=== PATIENT | male | born 1960 | race Caucasian/White ===

== ENCOUNTER 2018-03-29 20:14 | Inpatient (IN) | payer BC ==
[~2018-03-29] VITALS: Ht 182.9 cm; Wt 85.7 kg
--- NOTE | ~2018-03-29 | PROC ---
[address] [address] PROCEDURE REPORT Name: ABDOULAYE ALCANTARA Room: [facility]- ADM IN M.R.#: [id number] Admission: 03/29/18 Attend Phys: Chris Coppola Discharge: Date of : 64 Report #: [id number] THIS REPORT FOR: //name// For GI report, please see the Provation report in Perceptive 7 content. By: [id number] Records Staff KELI /JEREMIAH
[~2018-03-29 20:14] MED LIST: ACETAMINOPHEN-1 EAC1 PO; LISINOPRIL10 MG PO; PREDNISONE 20 M20 MG PO; PROAIR HFA8.5 GM INH; PROMETHAZINE D PO; PROMETHAZINE D480 ML PO; SINGULAIR 10 MG10 M1 PO; SYNTHROID150 MCG PO; TESSALON PERLE100 MG PO; ZANTAC 150MG T150 MG PO; ZPAK PO
[2018-03-29 20:15] VITALS: BP 161/96
[2018-03-29] MEDS ORDERED: OMEPRAZOLE 20 M20 M1 PO (20:20)
[2018-03-29] MEDS ORDERED: NEXIUM40 MG PO (20:23)
[2018-03-29 20:35] LABS: HEMATOCRIT 43.7 % (42.0-52.0); MCH 29.7 pg (26.0-34.0); MCHC 34.4 g/dL (28.0-37.0); MCV 86.4 fL (80.0-100.0); MPV 9.1 fl. (7.2-11.1); NUCLEATED RBCS 0 /100WBC; PLATELET COUNT* 285 thou/uL (150-400); RBC 5.05 mil/uL (4.50-6.00); RDW-CV 14.1 % (10.5-14.5); WBC 11.8 thou/uL (4.0-11.0)
[2018-03-29 20:55] LABS: ALBUMIN 4.1 g/dL (3.4-5.0); ALKALINE PHOSPHATASE 79 U/L (46-116); ANION GAP 12 mmol/L (7-16); BUN 26 mg/dL (7-18); CALCIUM 9.1 mg/dL (8.5-10.1); CHLORIDE 104 mmol/L (98-107); CO2 27 mmol/L (21-32); CREATININE 1.2 mg/dL (0.6-1.3); GLUCOSE 106 mg/dL (70-99); LIPASE 1692 U/L (73-393); POTASSIUM 3.1 mmol/L (3.5-5.1); SGOT 83 U/L (15-37); SGPT 70 U/L (30-65); SODIUM 143 mmol/L (136-145); TOTAL BILIRUBIN 0.8 mg/dL (<0.1-1.0); TOTAL PROTEIN 7.3 g/dL (6.4-8.2); TROPONIN-I LEVEL <0.06 ng/mL (<0.06)
[2018-03-29 20:57] LABS: URINE BILIRUBIN NEGATIVE (Negative); URINE BLOOD TRACE (Negative); URINE GLUCOSE-RANDOM NEGATIVE (Negative); URINE LEUKOCYTES-REFLEX NEGATIVE (Negative); URINE NITRITE-REFLEX NEGATIVE (Negative); URINE PROTEIN NEGATIVE (Negative); URINE SPECIFIC GRAVITY 1.025 (1.005-1.030); URINE UROBILINOGEN 0.2 E.U./dl (0.2-1.0)
[2018-03-29 21:10] LABS: URINE CLARITY SL HAZY; URINE COLOR YELLOW
[2018-03-29 21:17] LABS: URINE KETONES 3+ (Negative); URINE REDUCING SUBSTANCE NEGATIVE (Negative)
[2018-03-29 22:03] LABS: ABSOLUTE BASOPHILS 0.1 thou/uL (0.0-0.2); ABSOLUTE EOSINOPHILS 3.7 thou/uL (0.0-0.7); ABSOLUTE LYMPHOCYTES 3.2 thou/uL (0.8-5.3); ABSOLUTE MONOCYTES 0.5 thou/uL (0.0-1.2); ABSOLUTE NEUTROPHILS 4.4 thou/uL (1.6-8.1); PLATELET ESTIMATE ADEQUATE
[2018-03-29 22:55] VITALS: BP 140/91
[2018-03-29 23:10] VITALS: BP 154/95
[2018-03-29] MEDS ORDERED: VITAMIN D2000 UNIT PO (23:43)
--- NOTE | 2018-03-30 04:36 | NUR ---
PT ARRIVED ON UNIT FROM ER AT 2300 ASSISTED TO ROOM ORIENTED TO SURROUNDINGS VS AND ASSESSMENT STABLE. PT DENIED ANY COMPLAINTS AND SLEPT THROUGH THE NIGHT. WILL CONTINUE PLAN OF CARE.
[2018-03-30 08:00] VITALS: BP 119/85
--- NOTE | 2018-03-30 09:11 | NUR ---
ASSUMED CARE OF PT THIS AM. REFER TO ASSESSMENT. PT HAS NO C/O PAIN OR N/V THIS AM. POTASSIUM REPLACED ON PREVIOUS SHIFT. NO CONCERNS VOICED. CLWR. WCTM.
--- NOTE | 2018-03-30 09:15 | EKG ---
[place] [address] ELECTROCARDIOGRAM REPORT Name: ABDOULAYE ALCANTARA Room: [address] IN [facility].#: [id number] Admission: 03/29/18 Attend Phys: Chris Coppola Discharge: Date of : 64 Report #: [id number] THIS REPORT FOR: //name// [facility] ED Test Date: 2018-03-29 Test Time: 20:33:10 Pat Name: ABDOULAYE ALCANTARA Department: Room: Gender: Services Account Manager: [place] : 1960 Requested By: Gloria Montesinos Order Number: [id number] MD: Tony Martin Measurements Intervals [place] Rate: 62 P: 45 [place]: 182 QRS: -10 QRSD: 96 T: 22 QT: 443 QTc: 450 Interpretive Statements Sinus rhythm Borderline low voltage, extremity leads Compared to ECG 07/29/2017 11:09:46 No significant changes Electronically Signed On 03-30-2018 9:15:31 CDT by Tony Martin [email or web address] <ELECTRONICALLY SIGNED> By: Tony Martin MD, [facility] [id number] Tony Martin MD, [facility] /EPI
[2018-03-30 09:51] LABS: CALCIUM 8.7 mg/dL (8.5-10.1)
[2018-03-30 09:52] LABS: POTASSIUM 4.4 mmol/L (3.5-5.1)
[2018-03-30 11:05] LABS: CHOLESTEROL 168 mg/dL (<200); HDL CHOLESTEROL 38 mg/dL (>40); LDL CHOLESTEROL 117 mg/dL (<100); TC:HDL 4.4 Ratio (Not establshd); TRIGLYCERIDE 65 mg/dL (<150); VLDL 13 mg/dL (<40)
[2018-03-30 11:06] LABS: SERUM ASSESSMENT Clear
[2018-03-30 11:48] VITALS: BP 119/85
--- NOTE | 2018-03-30 12:18 | NUR ---
PT HEADING TO OR AT THIS TIME FOR EGD.
[2018-03-30 12:48] VITALS: BP 131/87
--- NOTE | 2018-03-30 15:44 | NUR ---
PT RETURNED FROM OR AROUND 1530. VSS. PT HAS NO C/O. WCTM.
[2018-03-30 16:10] VITALS: BP 131/85
--- NOTE | 2018-03-30 17:16 | NUR ---
PT PROGRESSING TOWARDS GOALS THIS SHIFT. EGD AND ABDOMINAL US COMPLETED. PT HAS NOT HAD ANY COMPLAINTS OF N/V. ADVANCED TO FULL LIQUID DIET AND TOLERATING AT THIS TIME. NO OTHER CONCERNS AT THIS TIME. CLWR. WCTM.
[2018-03-30 19:45] VITALS: BP 141/86
--- NOTE | 2018-03-31 05:17 | NUR ---
PATIENT ALERT AND ORIENTED. VITALS STABLE. RA. FLUIDS INFUSING PER ORDER. UP INDEPENDENTLY. DENIES NEED FOR PAIN AND NAUSEA MEDICATION. TOLERATING FULL LIQUID DIET. HOURLY ROUNDS. NURSING WILL CONTINUE TO MONITOR.
[2018-03-31 08:03] VITALS: BP 151/82
--- NOTE | 2018-03-31 10:33 | NUR ---
ASSUMED CARE OF PT THIS AM AROUND 07- UPON ASSESSMENT PT NOTED TO BE RESTING IN BED SIDE CHAIR- PT A&O X4- CONTINENT OF BOWEL AND BLADDER- UP AD-SILVIA WITH STEADY GAIT NOTED- LCTA, RESP EVEN AND UN-LABORED- VSS, O2 SAT 95% ON RA- ABDOMEN SOFT/ROUND/NON-TENDER, BS X4 QUADS- LAST BM REPORTED 03/30/18- IV NOTED TO LEFT AC INTACT, IVF INFUSING PRESCIBED- GOOD PO INTALE NOTED WITH FULL LIQUIDS THIS AM WITH NO NAUSEA NOTED- DIET TO BE ADVANACED TO [facility] FOR LUNCH WITH D/C PENDING HOW HE DOES WITH LUNCH- PT DENIES ANY C/O PAIN/DISCOMFORT AT THIS TIME- CALL LIGHT AND PERSONAL BELONGINGS WITH IN REACH- HOURLY ROUNDS IN PLACE R/T SAFETY/NEEDS- ALL NEEDS MET AT THIS TIME-WCTM
[2018-03-31 11:13] VITALS: BP 151/82
--- NOTE | 2018-03-31 14:05 | NUR ---
ORDERS RECIEVED THIS SHIFT FOR OKAY TO D/C HOME POST LUNCH IF ABLE TO TOLERATE WITH OUT DISCOMFORT/NAUSEA- PT NOTED TO HAVE [facility] DIET WITH LUNCH, WITH 100% INTAKE AND TOLERATED WELL WITH NO REPORTS OF DISCOMFORT OR NAUSEA- IV TO LEFT AC D/C'D PRIOR TO D/C- D/C TEACHING/EDUCATION GIVEN TO PT WITH ALL QUESTIONS AND CONCERNS ADDRESSED PRIOR TO D/C- NEEDED FOLLOW UPS COMMUNICATED WITH VERBAL UNDERSTANDING RECIEVED PER PT- BELONGINGS PACKED AND ACCOUNTED FOR PER PT- PT DRESSED AND CURRENTLY UP WAITTING IN BED SIDE CHAIR FOR RIDE- ALL NEEDS MET AT THIS TIME-WCTM
--- NOTE | 2018-04-01 13:09 | CON ---
[address] [address] CONSULTATION Name: ABDOULAYE ALCANTARA Room: [address] IN M.R.#: [id number] Admission: 03/29/18 Attend Phys: Chris Coppola Discharge: 03/31/18 Date of : 64 Report #: [id number] THIS REPORT FOR: //name// CC: Maricruz Hunt DATE OF SERVICE: 03/30/2018 ADDENDUM I have personally seen and examined the patient and reviewed labs and imaging. The patient with history of endoscopic evaluation about 3 years ago, which he believes that were negative. He presents with acute abdominal pain, which happened after meal last night. He reports that since the pain was severe and he had nausea, he decided to come to hospital. Since hospitalization, he was found to have elevated transaminases with AST and ALT in the 80 range. He also had CT suggestive of possible gastroenteritis. There was no evidence of pancreatitis and the patient had post-cholecystectomy imaging. His lipase was in 1600 range. The patient reports that the pain is better, but continues to feel it. We will go ahead and perform an upper endoscopy. We will also follow up on the patient's previous records. <ELECTRONICALLY SIGNED> By: Stephie Barrett MD 04/01/18 1309 1352 [id number] Barrett MD /maykel
--- NOTE | 2018-04-01 13:09 | CON ---
[facility] [address] [place] [address] CONSULTATION Name: ABDOULAYE ALCANTARA Room: [address] IN M.R.#: [id number] Admission: 03/29/18 Attend Phys: Chris Coppola Discharge: 03/31/18 Date of : 64 Report #: [id number] THIS REPORT FOR: //name// CC: Maricruz Hunt DICTATED BY: Leia Yañez [facility] DATE OF SERVICE: 03/30/2018 PRIMARY CARE PHYSICIAN: Maricruz Simons MD. Please note, at the time of this dictation, patient was seen and physically examined by myself. REASON FOR CONSULTATION: Abdominal pain and elevated lipase. HISTORY OF PRESENT ILLNESS: This is a pleasant 57-year-old male who states that he started having abrupt onset of some abdominal pain, which was in the epigastric area radiating into his back. He states that it was the worst he had ever had. He had been having some mild discomfort for the last 3 days and then intensified to a 10/10 that was sharp and stabbing on yesterday and he was unable to have any relief with trying to stretch, belch, or to have a bowel movement. The patient states he has also been having issues with ongoing nausea, which had worsened during this timeframe, but also he has been having nausea that has waxed and waned over the last several weeks to months. He is not for sure. The patient states approximately 10 days ago, he did vomit after eating lunch and he states when that occurred, it was probably 3-4 hours later and it was whatever he had eaten that he vomited up. He states rarely does he ever vomit. He did not notice any bright red blood or any coffee-ground emesis with that. He has not started any new medications or been on any antibiotics either. It was also noted on admission that his lipase level was elevated at 1692 and patient is a nondrinker. The patient does mention that he has been to [facility] with somewhat different discomfort before and he was told he had pancreatitis and was sent home. We will obtain those records for our review. The patient states he did have an EGD and colonoscopy. He cannot remember when or where. He is trying to get in touch with his to see if she has more and also to be able to look it up on his portal through his PCP and will let us know. ALLERGIES: CEFTIN AND ZYPREXA. MEDICATIONS: From home include albuterol or ProAir, omeprazole, vitamin D, Zestril, Singulair, [place] [address] CONSULTATION Name: ABDOULAYE ALCANTARA Room: [address] IN M.R.#: [id number] Admission: 03/29/18 Attend Phys: Chris Coppola Discharge: 03/31/18 Date of : 64 Report #: [id number] PAST MEDICAL HISTORY: He has sleep apnea, asthma, hypertension, hypothyroidism and some GERD. PAST SURGICAL HISTORY: Cholecystectomy. FAMILY HISTORY: Negative for any GI or female cancers. SOCIAL HISTORY: He denies any tobacco, alcohol or illegal drug use at this time. REVIEW OF SYSTEMS: Twelve-point review of systems is essentially negative except what is mentioned in the HPI. PHYSICAL EXAMINATION: VITAL SIGNS: Temperature 36.6, pulse 57, respirations 15, blood pressure 114/85. HEART: Regular rate and rhythm. LUNGS: Clear. ABDOMEN: Soft, positive bowel sounds in all 4 quadrants with some very minimal epigastric tenderness noted to palpation. LABORATORY DATA: Hemoglobin is 15, hematocrit 43.7, white count is 11.8, platelets 285. Sodium 142, potassium 4.4, chloride 108, CO2 28, BUN is 20, creatinine is 1, GFR is 78 and glucose is 87, total bilirubin is 0.8, alkaline phosphatase 79, ALT is 70, AST is 83. Lipase was 1692. CT of the abdomen and pelvis showed mildly distended stomach and nondilated small bowel with some mild thickening of the proximal jejunum was noted. ASSESSMENT: 1. Abdominal pain, improved. 2. Elevated lipase. 3. Nausea intermittently for the last several weeks. He had one episode of vomiting about 10 days ago. 4. Leukocytosis. 5. Elevated LFTs. 6. CT changes showing distended stomach and thickening of the small bowel. PLAN: 1. IV fluids 250 mL an hour. EGD today with Dr. Barrett. 2. We will obtain medical records from [facility] when he was seen in the ER and was told he had pancreatitis. 3. Labs: Acute hepatitis panel for his elevated LFTs since he has a baby boomer. 4. Further recommendations to be made once the procedure has been performed. Thank you for allowing us to participate in this patient's care. Please do not [address] [address] CONSULTATION Name: ABDOULAYE ALCANTARA Room: [address]#: [id number] Admission: 03/29/18 Attend Phys: Chris Coppola Discharge: 03/31/18 Date of : 64 Report #: [id number] hesitate to call with any questions in regard to this consult. ADDENDUM I have personally seen and examined the patient and reviewed labs and imaging. The patient with history of endoscopic evaluation about 3 years ago, which he believes that were negative. He presents with acute abdominal pain, which happened after meal last night. He reports that since the pain was severe and he had nausea, he decided to come to hospital. Since hospitalization, he was found to have elevated transaminases with AST and ALT in the 80 range. He also had CT suggestive of possible gastroenteritis. There was no evidence of pancreatitis and the patient had post-cholecystectomy imaging. His lipase was in 1600 range. The patient reports that the pain is better, but continues to feel it. We will go ahead and perform an upper endoscopy. We will also follow up on the patient's previous records. <ELECTRONICALLY SIGNED> By: Stephie Barrett MD 04/01/18 1309 1137 [id number] Barrett MD /nt
== END 2018-03-31 14:37 | disposition home or self-care (01) | DRG 371 ==
LOC: M.ERS 20:14 → M.ORTHSURG 22:32 → M.TBA-ER 22:32 → M.ORTHSURG 22:57
PROVIDERS: Internal Medicine; Nurse Practitioner Family; ADMIT Internal Medicine
PROC: 0DB98ZX Excision of Duodenum, Via Natural or Artificial Opening Endoscopic, Diagnostic (ICD-10-PCS; principal; 2018-03-30)
PROC: 0DB68ZX Excision of Stomach, Via Natural or Artificial Opening Endoscopic, Diagnostic (ICD-10-PCS; principal; 2018-03-30)
DX: A04.9 Bacterial intestinal infection, unspecified (principal); K85.90 Acute pancreatitis without necrosis or infection, unspecified; J45.909 Unspecified asthma, uncomplicated; I10 Essential (primary) hypertension; K21.9 Gastro-esophageal reflux disease without esophagitis; E03.9 Hypothyroidism, unspecified; D72.829 Elevated white blood cell count, unspecified; K44.9 Diaphragmatic hernia without obstruction or gangrene; K31.89 Other diseases of stomach and duodenum; Z90.49 Acquired absence of other specified parts of digestive tract; Z88.8 Allergy status to other drugs, medicaments and biological substances; Z82.49 Family history of ischemic heart disease and other diseases of the circulatory system

== ENCOUNTER → 2018-11-08 | Outpatient (CLI) | payer BC ==
[~2018-11-08] MED LIST changes: +NEXIUM40 MG PO; +OMEPRAZOLE 20 M20 M1 PO; +VITAMIN D2000 UNIT PO
== END ==
LOC: M.NUC 06:46
DX: R68.81 Early satiety (principal); R10.9 Unspecified abdominal pain

== ENCOUNTER → 2019-01-18 | Outpatient (CLI) | payer BC | END | disposition home or self-care (01) | LOC: M.RAD 01-09 12:04 | DX: M25.852 Other specified joint disorders, left hip (principal); M25.552 Pain in left hip; G89.29 Other chronic pain; Z87.19 Personal history of other diseases of the digestive system; Z88.8 Allergy status to other drugs, medicaments and biological substances; Z79.899 Other long term (current) drug therapy ==

== ENCOUNTER 2019-05-15 09:09 | Inpatient (IN) | payer BC ==
[~2019-05-15] VITALS: Ht 182.9 cm; Wt 83.9 kg
[2019-05-15 09:18] VITALS: BP 150/91
[2019-05-15] MEDS ORDERED: PROTONIX40 M1 PO (09:23)
[2019-05-15] MEDS ORDERED: BENTYL 10 MG CA10 MG PO (09:23)
[2019-05-15 09:37] LABS: URINE BILIRUBIN NEGATIVE (Negative); URINE BLOOD 2+ (Negative); URINE CLARITY CLEAR; URINE COLOR YELLOW; URINE GLUCOSE-RANDOM NEGATIVE (Negative); URINE KETONES NEGATIVE (Negative); URINE LEUKOCYTES-REFLEX NEGATIVE (Negative); URINE NITRITE-REFLEX NEGATIVE (Negative); URINE PROTEIN NEGATIVE (Negative); URINE SPECIFIC GRAVITY <= 1.005 (1.005-1.030); URINE UROBILINOGEN 0.2 E.U./dl (0.2-1.0)
[2019-05-15 09:50] LABS: SQUAMOUS 0-3 Few /LPF (0-3); URINE WBC-REFLEX 0-5 Rare /HPF (0-5)
[2019-05-15 09:51] LABS: BACTERIA-REFLEX 1-9 Few /HPF (None Seen); CASTS None Seen /LPF (None Seen); CRYSTALS None Seen /LPF (None Seen); MUCUS 4-6 Moderate strn/LPF (None Seen); URINE RBC 3-10 Few /HPF (0-2)
[2019-05-15 09:56] LABS: ABSOLUTE BASOPHILS 0.1 thou/uL (0.0-0.2); ABSOLUTE EOSINOPHILS 0.1 thou/uL (0.0-0.7); ABSOLUTE MONOCYTES 1.2 thou/uL (0.0-1.2); ABSOLUTE NEUTROPHILS 10.3 thou/uL (1.6-8.1); BASOPHILS 0.7 %; EOSINOPHILS 0.9 %; HEMATOCRIT 39.9 % (42.0-52.0); HEMOGLOBIN 13.6 gm/dL (14.0-18.0); LYMPHOCYTES 7.9 %; MCH 29.8 pg (26.0-34.0); MCHC 34.1 g/dL (28.0-37.0); MCV 87.4 fL (80.0-100.0); MONOCYTES 9.6 %; NUCLEATED RBCS 0 /100WBC; PLATELET COUNT* 252 thou/uL (150-400); POLYS 80.9 %; RBC 4.56 mil/uL (4.50-6.00); RDW-CV 13.3 % (10.5-14.5); WBC 12.8 thou/uL (4.0-11.0)
[2019-05-15 10:01] LABS: ANION GAP 7 mmol/L (7-16); BUN 19 mg/dL (7-18); CALCIUM 8.4 mg/dL (8.5-10.1); CHLORIDE 104 mmol/L (98-107); CO2 30 mmol/L (21-32); CREATININE 1.1 mg/dL (0.6-1.3); GLUCOSE 108 mg/dL (70-99); SODIUM 141 mmol/L (136-145)
[2019-05-15 10:10] LABS: ALBUMIN 3.4 g/dL (3.4-5.0); ALKALINE PHOSPHATASE 66 U/L (46-116); LIPASE 127 U/L (73-393); SGOT 13 U/L (15-37); SGPT 25 U/L (30-65); TOTAL BILIRUBIN 0.8 mg/dL (<0.1-1.0); TOTAL PROTEIN 6.8 g/dL (6.4-8.2); TROPONIN-I LEVEL <0.06 ng/mL (<0.06)
[2019-05-15 14:54] VITALS: BP 136/80
--- NOTE | 2019-05-15 15:08 | EKG ---
[place] [address] ELECTROCARDIOGRAM REPORT Name: ABDOULAYE ALCANTARA Room: [address] ADM IN M.R.#: [id number] Admission: 05/15/19 Attend Phys: Chris Coppola Discharge: Date of : 64 Report #: [id number] THIS REPORT FOR: //name// [facility] ED Test Date: 2019-05-15 Test Time: 09:38:31 Pat Name: ABDOULAYE ALCANTARA Department: Room: [facility] Gender: M Combination Man: JEREMIAH : 1960 Requested By: Lloyd Botello Order Number: [id number] MD: Roland Alaniz Measurements Intervals [place] Rate: 79 P: 55 HI: 174 QRS: -11 QRSD: 85 T: 27 QT: 360 QTc: 413 Interpretive Statements Sinus rhythm Compared to ECG 03/29/2018 20:33:10 No significant changes Electronically Signed On 05-15-2019 15:08:17 CDT by Roland Alaniz [email or web address] <ELECTRONICALLY SIGNED> By: Roland Alaniz MD, [facility] 05/15/19 1508 7 7 Roland Alaniz MD, FACC /EPI
[2019-05-15 15:35] VITALS: BP 127/79
[2019-05-15 21:45] VITALS: BP 126/85
[2019-05-16 07:40] VITALS: BP 112/79
[2019-05-16] MEDS ORDERED: CIPRO500 MG PO (10:11)
[2019-05-16] MEDS ORDERED: FLAGYL500 M1 PO (10:15)
[2019-05-16] MEDS ORDERED: NORCO 5-325 TA1 EAC1 PO (10:19)
[2019-05-16 16:30] VITALS: BP 133/85
[2019-05-16 18:59] VITALS: BP 133/85
[2019-05-16 19:04] VITALS: BP 133/85
[2019-05-16 19:30] VITALS: BP 133/85
== END 2019-05-16 19:31 | disposition home or self-care (01) | DRG 392 ==
LOC: M.ERS 09:09 → M.ORTHSURG 11:41 → M.TBA-ER 11:41 → M.ORTHSURG 14:56
PROVIDERS: Emergency Medicine Emergency Medical Services; ADMIT Internal Medicine
DX: K57.20 Diverticulitis of large intestine with perforation and abscess without bleeding (principal); J45.909 Unspecified asthma, uncomplicated; I10 Essential (primary) hypertension; K21.9 Gastro-esophageal reflux disease without esophagitis; E03.9 Hypothyroidism, unspecified; R31.9 Hematuria, unspecified; K29.70 Gastritis, unspecified, without bleeding; Z90.49 Acquired absence of other specified parts of digestive tract; Z88.8 Allergy status to other drugs, medicaments and biological substances; Z82.49 Family history of ischemic heart disease and other diseases of the circulatory system; Z79.899 Other long term (current) drug therapy